=== PATIENT | female | born 1995 | race Caucasian/White ===

== ENCOUNTER 2019-08-19 11:02 | Outpatient (CLI) | payer BC, SELFPAY ==
--- NOTE | ~2019-08-19 | US_ITS ---
EXAMINATION: US renal BI EXAM DATE: 08/19/2019 11:50 INDICATION: Abdominal pain when using bathroom. TECHNIQUE: Multiple grayscale and Doppler images of the kidneys were obtained (by a technologist who performed the scan) and subsequently reviewed. There is no prior study for comparison. FINDINGS: Right kidney: There is normal contour and echogenicity. It measures 10.5 x 4.6 x 4.3 centimeters. T here are no focal renal lesions identified. There is no hydronephrosis. Left kidney: There is normal contour and echogenicity. It measures 11.2 x 4.8 x 4.9 centimeters. Th ere are no focal renal lesions identified. There is no hydronephrosis. Bladder unremarkable. IMPRESSION: 1. Sonographically unremarkable kidneys. Reviewed, dictated and finalized at location A.
== END 2019-08-19 11:03 | disposition home or self-care (01) ==
LOC: ANHIMG 11:06
PROVIDERS: Visit Provider Obstetrics & Gynecology
DX: R10.9 Unspecified abdominal pain (principal)
CPT/HCPCS: 76775

== ENCOUNTER 2020-05-23 11:51 | Outpatient (CLI) | payer BC, SELFPAY ==
[2020-05-23 12:33] LABS: Basophils Absolute Auto 0.1 K/mm3 (0.0-0.1); Basophils Percent Auto 0.5 % (0.2-1.2); Eosinophils Absolute Auto 0.1 K/mm3 (0-0.3); Hemoglobin 13.4 g/dL (12.0-15.0); Immature Granulocyte Absolute 0.02 K/mm3 (0.00-0.031); Immature Granulocyte Percent A 0.2 % (0-0.5); Lymphocytes Absolute Auto 2.37 K/mm3 (0.9-3.2); Mean Corpuscular HGB Conc 33.5 g/dl (32-36); Mean Corpuscular Hemoglobin 31.3 pg (26-34); Mean Corpuscular Volume 93.5 fl (80-100); Mean Platelet Volume 9.4 fl (7.4-10.4); Monocytes Absolute Auto 0.7 K/mm3 (0.1-0.6); Monocytes Percent Auto 7.9 % (2.6-8.5); Neutrophils Absolute Auto 5.9 K/mm3 (1.3-6.7); Neutrophils Percent Auto 64.4 % (45.5-73.1); Platelet Count Result 283 k/mm3 (150-375); Red Blood Count 4.28 M/mm3 (4.2-5.4); Red Cell Distribution Width 12.5 % (11.5-14.5); White Blood Count 9.1 K/mm3 (4.5-10.0)
[2020-05-23 12:38] LABS: Add Urine Microscopic? YES; Amorphous Sediment Urine Moderate; Appearance Urine Turbid (Clear); Bacteria Urine Trace /hpf; Bilirubin Urine Negative (Negative); Blood Urine Negative (Negative); Color Urine Yellow (Yellow); Glucose Urine UA Negative (Negative); Ketones Urine Trace mg/dL (Negative); Leukocyte Esterase Ur 1+ LEU/UL (NEGATIVE); Mucus Urine Moderate /lpf; Nitrate Urine Negative (Negative); Protein Urine 2+ mg/dL (Negative); Specific Grav Ur 1.018 (1.001-1.035); Squamous Epithelial Cell Urine Moderate /hpf (Few); Urobilinogen Urine Negative mg/dL (<2.0); WBC Urine 0-3 /hpf (0-3)
[2020-05-23 13:14] LABS: Thyroid Stimulating Hormone 0.032 uIU/mL (0.465-4.680); Vitamin D 25 Hydroxy 67.8 ng/mL
[2020-05-23 13:23] LABS: HIV 1/2 Ab P24 Ag Result Negative (Negative)
[2020-05-23 13:32] LABS: Hepatitis B Surface Antigen Negative (Negative); Rubella IgG Antibody 12.3 IU/ML
[2020-05-23 13:46] LABS: Hepatitis C Virus Antibody Negative (Negative)
[2020-05-24 10:19] LABS: Rapid Plasma Reagin Non-Reactive (NonReactive)
[2020-05-25 13:56] LABS: Varicella IgG Antibody <135.00 Index (>=165.00)
[2020-05-27 00:52] LABS: Hemoglobin 12.9 g/dL (11.7-15.5); MCH 31.4 pg (27.0-33.0); MCV 94.7 FL (80.0-100.0); RDW 13.8 % (11.0-15.0); Red Blood Cell Count 4.12 Mill/uL (3.80-5.10)
== END 2020-05-23 11:52 | disposition home or self-care (01) ==
LOC: ANHLAB 11:52
PROVIDERS: Visit Provider Obstetrics & Gynecology
DX: Z34.91 Encounter for supervision of normal pregnancy, unspecified, first trimester (principal); Z3A.10 10 weeks gestation of pregnancy
CPT/HCPCS: 36415; 81001; 82306; 83021; 84443; 85025; 86592; 86703; 86762; 86787; 86803; 86850; 86900; 86901; 87086; 87088; 87340; G0432

== ENCOUNTER 2020-09-22 11:55 | Outpatient (CLI) | payer BC, MEDICAID, SELFPAY ==
[2020-09-22 13:42] LABS: Basophils Absolute Auto 0.1 K/mm3 (0.0-0.1); Basophils Percent Auto 0.4 % (0.2-1.2); Eosinophils Absolute Auto 0.1 K/mm3 (0-0.3); Eosinophils Percent Auto 0.5 % (0-4.4); Hematocrit 35.6 % (37.0-47.0); Hemoglobin 11.8 g/dL (12.0-15.0); Immature Granulocyte Absolute 0.12 K/mm3 (0.00-0.031); Immature Granulocyte Percent A 1.1 % (0-0.5); Lymphocytes Absolute Auto 2.13 K/mm3 (0.9-3.2); Lymphocytes Percent Auto 19.1 % (18.3-44.2); Mean Corpuscular HGB Conc 33.1 g/dl (32-36); Mean Corpuscular Hemoglobin 32.1 pg (26-34); Mean Corpuscular Volume 96.7 fl (80-100); Mean Platelet Volume 9.6 fl (7.4-10.4); Monocytes Percent Auto 8.5 % (2.6-8.5); Neutrophils Absolute Auto 7.8 K/mm3 (1.3-6.7); Neutrophils Percent Auto 70.4 % (45.5-73.1); Platelet Count Result 262 k/mm3 (150-375); Red Blood Count 3.68 M/mm3 (4.2-5.4); Red Cell Distribution Width 13.2 % (11.5-14.5); White Blood Count 11.1 K/mm3 (4.5-10.0)
[2020-09-22 13:43] LABS: Glucose 1 Hour PP 50gm Dose 119 mg/dL
== END 2020-09-22 11:56 | disposition home or self-care (01) ==
LOC: ANHLAB 11:57
PROVIDERS: PCP Student in an Organized Health Care Education/Training Program; Visit Provider Student in an Organized Health Care Education/Training Program
DX: Z34.90 Encounter for supervision of normal pregnancy, unspecified, unspecified trimester (principal); Z3A.00 Weeks of gestation of pregnancy not specified
CPT/HCPCS: 36415; 82947; 85025

== ENCOUNTER 2020-11-02 11:12 | Outpatient (RCR) | payer BC, MEDICAID, SELFPAY ==
--- NOTE | ~2020-11-02 | US_ITS ---
EXAMINATION: US OB BPP wo non-stress DATE: 11/02/2020 12:35 CDT INDICATION: Decreased movements TECHNIQUE: Real-time transabdominal obstetric ultrasound. FINDINGS: No prior studies for comparison. There is a single living fetus in vertex presentation. The placenta is anterior without placenta pre via. cardiac activity and movement is noted with a heart rate of 119 beats per minute. Biophysical profile: breathin of 2 movement: 2 of 2 tone: 2 of 2 Amniotic flud pocket: 2 of 2 Total score: 8 of 8 IMPRESSION: 1. Single living intrauterine in vertex presentation. 2: Total biophysical profile score of 8/8. Reviewed, dictated and finalized at location A.
[2020-11-02 12:03] VITALS: BP 98/61; PULSE 100
--- NOTE | 2020-11-02 12:40 | PC.NURSE ---
BPP 10/23
== END 2020-12-19 07:35 | disposition home or self-care (01) ==
LOC: ANHOBOP 11:12
PROVIDERS: PCP Student in an Organized Health Care Education/Training Program; Visit Provider Student in an Organized Health Care Education/Training Program
DX: O36.8130 Decreased fetal movements, third trimester, not applicable or unspecified (principal); Z3A.33 33 weeks gestation of pregnancy
CPT/HCPCS: 59025; 76819

== ENCOUNTER 2020-11-14 08:33 | Outpatient (CLI) | payer BC, MEDICAID, SELFPAY ==
[2020-11-14 19:54] LABS: Basophils Absolute Auto 0.1 K/mm3 (0.0-0.1); Basophils Percent Auto 0.6 % (0.2-1.2); Eosinophils Absolute Auto 0.1 K/mm3 (0-0.3); Eosinophils Percent Auto 0.8 % (0-4.4); Hematocrit 34.1 % (37.0-47.0); Hemoglobin 10.5 g/dL (12.0-15.0); Immature Granulocyte Absolute 0.15 K/mm3 (0.00-0.031); Immature Granulocyte Percent A 1.4 % (0-0.5); Lymphocytes Absolute Auto 2.39 K/mm3 (0.9-3.2); Lymphocytes Percent Auto 22.8 % (18.3-44.2); Mean Corpuscular HGB Conc 30.8 g/dl (32-36); Mean Corpuscular Hemoglobin 30.3 pg (26-34); Mean Corpuscular Volume 98.3 fl (80-100); Mean Platelet Volume 9.7 fl (7.4-10.4); Monocytes Absolute Auto 1.2 K/mm3 (0.1-0.6); Monocytes Percent Auto 11.1 % (2.6-8.5); Neutrophils Absolute Auto 6.6 K/mm3 (1.3-6.7); Neutrophils Percent Auto 63.3 % (45.5-73.1); Platelet Count Result 260 k/mm3 (150-375); Red Blood Count 3.47 M/mm3 (4.2-5.4); Red Cell Distribution Width 13.9 % (11.5-14.5); White Blood Count 10.5 K/mm3 (4.5-10.0)
[2020-11-14 21:42] LABS: HIV 1/2 Ab P24 Ag Result Negative (Negative)
[2020-11-16 10:01] LABS: Rapid Plasma Reagin Non-Reactive (NonReactive)
== END 2020-11-14 08:34 | disposition home or self-care (01) ==
PROVIDERS: PCP Student in an Organized Health Care Education/Training Program; Visit Provider Student in an Organized Health Care Education/Training Program
DX: Z34.93 Encounter for supervision of normal pregnancy, unspecified, third trimester (principal); Z3A.31 31 weeks gestation of pregnancy
CPT/HCPCS: 36415; 85025; 86592; 86703; G0432

== ENCOUNTER 2020-12-08 13:56 | Inpatient (IN) | payer BC, MEDICAID, SELFPAY ==
[2020-12-08] VITALS (13 sets, daily range): BP systolic 99–114; BP diastolic 56–64; PULSE 66–90; RESP 18; TEMP 36.6–36.9; O2SAT 99–100; BMI 33.5
--- NOTE | 2020-12-08 13:56 | LDADM ---
This patient, Kae Mart, was admitted to Labor/Delivery/Recovery 107 on 12/08/20 at 13:56. Plans for labor, pain management and were discussed with patient. Patient/family oriented to hospital policies and general routines including ID bracelet, bed and alarms, visiting hours, pain management, procedures, bathroom and other care routines, personal items, smoking policy, room service/diet and guest tray routines, security routines, and visiting hours. Patient/Family are encouraged to report perceived risks to care and to ask questions if they do not understand what they are told or what they should do. See OBIX for further documentation.
[2020-12-08 14:24] LABS: Basophils Absolute Auto 0.1 K/mm3 (0.0-0.1); Basophils Percent Auto 0.4 % (0.2-1.2); Eosinophils Percent Auto 0.3 % (0-4.4); Hematocrit 35.9 % (37.0-47.0); Hemoglobin 12.1 g/dL (12.0-15.0); Immature Granulocyte Absolute 0.13 K/mm3 (0.00-0.031); Immature Granulocyte Percent A 0.9 % (0-0.5); Lymphocytes Absolute Auto 3.18 K/mm3 (0.9-3.2); Lymphocytes Percent Auto 22.8 % (18.3-44.2); Mean Corpuscular HGB Conc 33.7 g/dl (32-36); Mean Corpuscular Volume 92.1 fl (80-100); Mean Platelet Volume 9.7 fl (7.4-10.4); Monocytes Absolute Auto 1.4 K/mm3 (0.1-0.6); Neutrophils Absolute Auto 9.2 K/mm3 (1.3-6.7); Neutrophils Percent Auto 65.6 % (45.5-73.1); Platelet Count Result 289 k/mm3 (150-375); Red Cell Distribution Width 13.4 % (11.5-14.5)
[2020-12-08] MEDS: OXYTOCIN 30 UNITS/NS 500 ML 30 UNITS/500 ML BAG 125 UNITS IV CONT (15:11)
[2020-12-08] MEDS: BENZOCAINE 20% AER SPR (*SP) 56 GM CAN 1 SPRAY TOPICAL (15:15)
[2020-12-08] MEDS: WITCH HAZEL 40 PADS 1 PAD TOPICAL (15:15)
--- NOTE | 2020-12-08 16:43 | PC.NURSE ---
Patient transferred to post room #286 per wheelchair from labor and delivery. Support person present. Oriented to unit, room, information board, rooming in, admission packet and security measures. Patient verbalizes understanding.
[2020-12-09 04:10] VITALS: BP 96/62; PULSE 85; RESP 18; TEMP 36.6; O2SAT 96
[2020-12-09 04:59] LABS: Hematocrit 32.6 % (37.0-47.0); Hemoglobin 10.7 g/dL (12.0-15.0)
--- NOTE | 2020-12-09 06:51 | PM.IMHP ---
H&P: HPI History of Present Illness Date/Time: 12/08/20 1400 LMP 03/12 with an EDC 12/17/20 consistent with a 6 week ultrasound. Patient at 38 weeks presented in active labor after having SROM clear at 1330, she then started having regular contractions soon afterwards. When she presented to L and D she was 7 cm and progressing rapidly. PNC uncomplicated. Labs reviewed. GBS neg. Chief Complaint: Labor. Review of Systems Review of Systems: All systems reviewed & are unremarkable except as noted in HPI and below Constitutional: Constitutional: Reports no additional constitutional complaints and Denies headache(s) Eyes: Eyes: Denies spots in vision ENT: Reports system reviewed and no additional complaints, except as documented and Denies headache(s) Cardiovascular: Cardiovascular: Denies chest pain and Denies dyspnea Respiratory: Respiratory: Denies dyspnea Gastrointestinal: Gastrointestinal: Reports no additional gastrointestinal complaints Genitourinary: Genitourinary: Reports amenorrhea Musculoskeletal: Musculoskeletal: Reports no additional musculoskeletal complaints Integumentary/Breasts: Skin/Breast: Denies breast mass and Denies rash Neurologic: Denies headache(s) Psychiatric: Psychiatric: Reports no additional psychiatric complaints [facility] Past Medical History Medical History Vaginal delivery x1 Surgical History Surgical History History of tonsillectomy Family History Family History Mother Hypertension Social History Social History Smoking status: Never smoker Alcohol intake: never Substance use: unknown Spiritual care concerns: No Meds Home Medications and Allergies Home Medications Medication Instructions Recorded Confirmed Type vit 123-iron 28 mg-folic 1 cap PO DAILY 12/29/19 12/08/20 History acid 800 [id number] 235 mg capsule Allergies Allergy/AdvReac Type Severity Reaction Status Date / Time EPIDURAL AdvReac TACHYCARDIA Uncoded 12/08/20 14:53 Vital Signs Vital Signs - 24 hr 12/08/20 14:16 12/08/20 14:28 12/08/20 14:31 Temperature 98.4 F Pulse Rate 84 85 Respiratory Rate Blood Pressure 108/62 105/57 L Pulse Oximetry 12/08/20 14:35 12/08/20 14:46 12/08/20 15:01 Temperature 98.3 F Pulse Rate 80 87 Respiratory Rate Blood Pressure 113/61 114/56 L Pulse Oximetry 12/08/20 15:16 12/08/20 15:31 12/08/20 15:46 Temperature Pulse Rate 83 90 85 Respiratory Rate Blood Pressure 103/57 L 106/57 L 99/57 L Pulse Oximetry 12/08/20 16:01 12/08/20 16:45 12/08/20 19:30 Temperature 97.9 F 98.4 F Pulse Rate 69 76 77 Respiratory Rate 18 18 Blood Pressure 102/62 108/62 100/64 Pulse Oximetry 99 12/08/20 23:10 12/09/20 04:10 Temperature 98.0 F 97.8 F Pulse Rate 66 85 Respiratory Rate 18 18 Blood Pressure 101/60 96/62 L Pulse Oximetry 100 96 Exam Const: General: no acute distress Eyes: General: appearance normal, both eyes and all related structures Resp: Effort & Inspection: normal respiratory effort Cardio: Rate: regular rate GI: Other: Gravid no fundal tenderness no right upper quadrant pain : External Female Exam: normal external appearance Speculum Exam - Vagina: normal appearance of the vagina Manual OB Exam: dilated 7 cm, effaced (90) and station -1 Skin: General skin exam: no rashes or lesions noted Neuro: Cognition (Neuro): normal cognition Extrem: General: normal to inspection Psych: Mental Status: mental status grossly normal H&P: Results Labs Labs: Short CBC 12/08/20 12/09/20 Range/Units 14:16 03:58 WBC 14.0 H (4.5-10.0) K/mm3 Hgb 12.1 10.7 L (12.0-15.0) g/dL Hct 35.9 L 32.6 L (37.0-47.0) % Plt Count 289 (150-375)
--- NOTE | 2020-12-09 07:01 | P.PCNOB_ITS ---
OB - Delivery Note Procedure Delivery date: 12/08/20 Procedure: Spontaneous vaginal delivery Intrapartal events: Precipitous Labor < 3 hours Delivery monitor: external FHT Route of delivery: Episiotomy description: None Laceration Description: None Quantitative Blood Loss (ml): 200 Anesthesia type: None Disposition: floor Complications: None Narrative: Patient was admitted on 12/08 20 after having spontaneous rupture of membranes clear at 1:30 p.m.. She arrived at Labor and delivery and confirmed ruptured membranes. Her cervix was 7 cm. She was rapidly progressing and had the urge to push. She was completely dilated at approximately 14 20. She delivered spontaneously a female infant. There was a loose nuchal cord which was manually reduced. The rest the infant was then delivered and placed on maternal abdomen. Baby was vigorously crying upon being placed on the abdomen. Delayed cord clamping for approximately 30 seconds when the cord was a pulsatile. The cord was clamped and cut the cord blood was obtained and prior to that cord gases were obtained from the cord. The placenta delivered spontaneously and intact. There were no lacerations. EBL was 200 cc. The patient tolerated procedure well. [place] Baby Date of : 12/08/20 Time of : 14:29 Weeks of gestation at delivery: 38 gender: Female Weight (pounds): 7 Weight (ounces): 12 presentation: vertex position: Right Occiput Anterior Placenta delivery description: Spontaneous cord vessel description: 3 Vessels score one minute: 8 score five minutes: 9
--- NOTE | 2020-12-09 07:41 | PM.OBDSVD ---
DS: Admitting Diagnosis Discharge Date 12/09/2020 Admitting Diagnosis active labor DS: Discharge Diagnosis Discharge Diagnosis (1) Vaginal delivery: Code(s): O80 - Encounter for full-term uncomplicated delivery Status: Acute OB - DS: Summary OB Procedures : None OB Procedures Intrapartum: Spontaneous Vag Delivery OB Procedures: : None Time Spent with Patient Time attestation: Total time spent providing and/or coordinating discharge services: DS: Data Data Completed and Pending Labs on day of discharge: Labs from last 24 hours 12/09/20 12/08/20 12/08/20 03:58 14:16 14:16 WBC RBC Hgb 10.7 L Hct 32.6 L MCV MCH MCHC RDW Plt Count MPV Immature Gran % (Auto) Neut % (Auto) Lymph % (Auto) [place] % (Auto) Eos % (Auto) Baso % (Auto) Lymph # (Auto) [place] # (Auto) Eos # (Auto) Baso # (Auto) Abs Immat Gran (auto) Absolute Neuts (auto) Absolute Nucleated RBC Nucleated RBC % RPR Pending Blood Type O Positive Antibody Screen Negative 12/08/20 14:16 WBC 14.0 H RBC 3.90 L Hgb 12.1 Hct 35.9 L MCV 92.1 MCH 31.0 MCHC 33.7 RDW 13.4 Plt Count 289 MPV 9.7 Immature Gran % (Auto) 0.9 H Neut % (Auto) 65.6 Lymph % (Auto) 22.8 [place] % (Auto) 10.0 H Eos % (Auto) 0.3 Baso % (Auto) 0.4 Lymph # (Auto) 3.18 [place] # (Auto) 1.4 H Eos # (Auto) 0.0 Baso # (Auto) 0.1 Abs Immat Gran (auto) 0.13 H Absolute Neuts (auto) 9.2 H Absolute Nucleated RBC 0.0 Nucleated RBC % 0.0 RPR Blood Type Antibody Screen Discharge Plan Discharge Attending physician on discharge: Oleksandr Cameron Discharging Clinician: Elaine Maddox Patient Disposition: Home, Self-Care Activity: may shower and pelvic rest Diet: as tolerated Patient Instructions: Antibiotic Form Stand Alone Forms: General Discharge Information Follow-up/Referrals: Oleksandr Cameron MD [Physician] - 6 Weeks Discharge Medications: New ibuprofen 600 mg Tablet 600 mg PO Q6H PRN (Reason: Cramping) Qty: 60 RF: 0 Continued One-A-Day Women's 1 28 mg iron- 800 mcg-235 mg capsule 1 cap PO DAILY RF: 0 Date of admission: 12/08/20 13:56 Primary Care Provider: Katie Brooke Admitting Provider: Oleksandr Cameron Attending physician on admission: Oleksandr Cameron Condition: Stable
--- NOTE | 2020-12-09 07:43 | P.PNOB_ITS ---
OB - PN: Subj Subjective Date/time seen: 12/09/20 07:43 Patient comments: no complaints, pain well controlled and other (Lochia similar to menses) [place] baby status: doing well OB - PN: Obj Data Labs CBC & Chem 7: 12/09/20 03:58 Labs: Laboratory Results - last 24 hr 12/08/20 12/08/20 12/09/20 14:16 14:16 03:58 WBC 14.0 H RBC 3.90 L Hgb 12.1 10.7 L Hct 35.9 L 32.6 L MCV 92.1 MCH 31.0 MCHC 33.7 RDW 13.4 Plt Count 289 MPV 9.7 Immature Gran % (Auto) 0.9 H Neut % (Auto) 65.6 Lymph % (Auto) 22.8 [place] % (Auto) 10.0 H Eos % (Auto) 0.3 Baso % (Auto) 0.4 Lymph # (Auto) 3.18 [place] # (Auto) 1.4 H Eos # (Auto) 0.0 Baso # (Auto) 0.1 Abs Immat Gran (auto) 0.13 H Absolute Neuts (auto) 9.2 H Absolute Nucleated RBC 0.0 Nucleated RBC % 0.0 Blood Type O Positive Antibody Screen Negative OB - PN A/P Plan day: 1 (s/p vaginal delivery, doing well) Plan: routine care, discharge home and follow up 6 weeks Time Spent With Patient Time: Total time spent is greater than 50% in coordination of care (as documented) at patient's floor/unit and/or counseling patient: Time with patient: less than 15 minutes Exam Const: General: no acute distress GI: Inspection: other (Fundus firm and nontender at umbilicus) GI Palp: Yes Soft to palpation and No Tenderness to palpation present (GI) Extrem: General: no edema
[2020-12-09 08:30] VITALS: BP 108/64; PULSE 72; RESP 16; TEMP 36.6; O2SAT 98
[2020-12-09] MEDS: MULTIVIT/MIN/PREN/FOL AC/IRON TABLET 1 TAB PO (09:06)
--- NOTE | 2020-12-09 12:00 | PC.NURSE ---
Patient instructed to view the discharge video Mother & Baby Care, The First Two Weeks . Patient was given the opportunity and encouraged to ask questions. Patient verbalized understanding of information shared and has been given the mother/baby guide for home reference.
[2020-12-09 12:13] VITALS: BP 116/73; PULSE 84; RESP 18; TEMP 37.2; O2SAT 99
[2020-12-09 13:52] LABS: Rapid Plasma Reagin Non-Reactive (NonReactive)
[2020-12-10 13:21] VITALS: BP 109/74; PULSE 81; RESP 16; TEMP 37.4; O2SAT 99
== END 2020-12-09 17:12 | disposition home or self-care (01) | DRG 807 ==
LOC: ANHOB2 12-09 16:41 → ANHLDR 12-12 09:12 → ANHOB2 12-12 09:12
PROVIDERS: Admitting Provider Obstetrics & Gynecology; PCP Student in an Organized Health Care Education/Training Program; Visit Provider Obstetrics & Gynecology
DX: O62.3 Precipitate labor (principal); Z37.0 Single live birth; O69.81X0 Labor and delivery complicated by cord around neck, without compression, not applicable or unspecified; Z3A.38 38 weeks gestation of pregnancy
CPT/HCPCS: 36415; 85014; 85018; 85025; 86592; 86850; 86900; 86901; A9270; J2590

== ENCOUNTER 2021-02-13 08:58 | Outpatient (CLI) | payer MEDICAID, SELFPAY ==
[2021-02-13 19:07] LABS: T4 Thyroxine 9.38 ug/dL (5.53-11.0); Vitamin D 25 Hydroxy 54.2 ng/mL
[2021-02-13 19:20] LABS: Thyroid Stimulating Hormone 0.727 uIU/mL (0.465-4.680)
== END 2021-02-13 08:59 | disposition home or self-care (01) ==
PROVIDERS: PCP Obstetrics & Gynecology; Visit Provider Obstetrics & Gynecology
DX: O99.345 Other mental disorders complicating the puerperium (principal); F53.0 Postpartum depression; Z51.81 Encounter for therapeutic drug level monitoring; Z79.899 Other long term (current) drug therapy
CPT/HCPCS: 36415; 82306; 84436; 84443

== ENCOUNTER → 2021-12-08 08:08 | Outpatient (CLI) | payer OTHER, SELFPAY ==
--- NOTE | ~2021-12-08 | US_ITS ---
EXAMINATION: US OB <= 14 weeks fetus DATE: 12/08/2021 08:37 INDICATION: First trimester dating and viability assessment. TECHNIQUE: Real-time pelvic transabdominal and transvaginal ultrasound was performed. COMPARISON: None. FINDINGS: The uterus measures 10.1 x 6.4 x 8.9 cm. There is an intrauterine gestational sac. A yolk sac is identified. heart motion is identified measuring 176 beats per minute (bpm) by M-mode Do ppler. The crown rump length measures 2.2 cm, which correlates with an estimated gestational ag e of 8 weeks and 6 day(s) (+/-) 6 day(s). The ovaries are not visualized however no adnexal abnormality is seen. There is no free fluid in the pelvis. IMPRESSION: 1. Live intrauterine with an estimated gestational age of 8 weeks and 6 day(s) (+/-) 6 day( s) and an estimated delivery date of 07/14/2022. Reviewed, dictated and finalized at location A. IMPRESSION: 1. Live intrauterine with an estimated gestational age of 8 weeks and 6 day(s) (+/-) 6 day(s) and an estimated delivery date of 07/14/2022.
== END ==
PROVIDERS: PCP Obstetrics & Gynecology; Visit Provider Obstetrics & Gynecology
DX: O36.80X0 Pregnancy with inconclusive fetal viability, not applicable or unspecified (principal); Z3A.08 8 weeks gestation of pregnancy
CPT/HCPCS: 76801

== ENCOUNTER 2022-01-31 15:06 | Outpatient (CLI) | payer OTHER, SELFPAY ==
[2022-01-31 20:15] LABS: Free T4 Free Thyroxine 0.82 ng/mL (0.78-2.19)
[2022-02-01 04:22] LABS: Appearance Urine Cloudy (Clear); Bilirubin Urine 1+ (Negative); Blood Urine Trace-intact (Negative); Color Urine Yellow (Yellow); Glucose Urine UA Negative (Negative); Ketones Urine 3+ mg/dL (Negative); Leukocyte Esterase Ur 1+ LEU/UL (NEGATIVE); Nitrate Urine Negative (Negative); Protein Urine Trace mg/dL (Negative); Specific Grav Ur 1.025 (1.001-1.035); Urobilinogen Urine 0.2 mg/dL (<2.0); pH Urine 5.5 (5.0-9.0)
[2022-02-01 04:29] LABS: Bacteria Urine Trace /hpf; Mucus Urine Few /lpf; Squamous Epithelial Cell Urine Many /hpf (Few); WBC Urine 31-50 /hpf (0-3)
[2022-02-01 04:39] LABS: Add Urine Microscopic? YES
== END 2022-01-31 15:07 | disposition home or self-care (01) ==
LOC: ANHBWCLAB 15:08
PROVIDERS: PCP Obstetrics & Gynecology; Visit Provider Obstetrics & Gynecology
DX: Z34.90 Encounter for supervision of normal pregnancy, unspecified, unspecified trimester (principal); R82.90 Unspecified abnormal findings in urine; R79.89 Other specified abnormal findings of blood chemistry; Z3A.00 Weeks of gestation of pregnancy not specified
CPT/HCPCS: 36415; 81001; 84439; 86900; 86901; 87086; 87088

== ENCOUNTER 2022-04-21 09:54 | Outpatient (CLI) | payer OTHER, SELFPAY ==
[2022-04-21 11:38] LABS: Basophils Percent Auto 0.3 % (0.2-1.2); Eosinophils Absolute Auto 0.1 K/mm3 (0-0.3); Eosinophils Percent Auto 0.9 % (0-4.4); Hematocrit 34.9 % (37.0-47.0); Hemoglobin 11.4 g/dL (12.0-15.0); Immature Granulocyte Absolute 0.08 K/mm3 (0.00-0.031); Immature Granulocyte Percent A 0.8 % (0-0.5); Lymphocytes Absolute Auto 2.12 K/mm3 (0.9-3.2); Lymphocytes Percent Auto 21.9 % (18.3-44.2); Mean Corpuscular HGB Conc 32.7 g/dl (32-36); Mean Corpuscular Hemoglobin 30.3 pg (26-34); Mean Corpuscular Volume 92.8 fl (80-100); Mean Platelet Volume 8.8 fl (7.4-10.4); Monocytes Absolute Auto 1.1 K/mm3 (0.1-0.6); Monocytes Percent Auto 11.4 % (2.6-8.5); Neutrophils Absolute Auto 6.3 K/mm3 (1.3-6.7); Neutrophils Percent Auto 64.7 % (45.5-73.1); Platelet Count Result 293 k/mm3 (150-375); Red Blood Count 3.76 M/mm3 (4.2-5.4); Red Cell Distribution Width 14.4 % (11.5-14.5); White Blood Count 9.7 K/mm3 (4.5-10.0)
[2022-04-21 11:47] LABS: Glucose 1 Hour PP 50gm Dose 92 mg/dL
== END 2022-04-21 09:55 | disposition home or self-care (01) ==
LOC: ANHLAB 09:55
PROVIDERS: PCP Obstetrics & Gynecology; Visit Provider Obstetrics & Gynecology
DX: Z34.90 Encounter for supervision of normal pregnancy, unspecified, unspecified trimester (principal); Z3A.00 Weeks of gestation of pregnancy not specified
CPT/HCPCS: 36415; 82947; 85025

== ENCOUNTER 2022-06-04 08:37 | Outpatient (CLI) | payer OTHER, SELFPAY ==
[2022-06-04 19:59] LABS: Basophils Absolute Auto 0.1 K/mm3 (0.0-0.1); Basophils Percent Auto 0.6 % (0.2-1.2); Eosinophils Absolute Auto 0.1 K/mm3 (0-0.3); Eosinophils Percent Auto 0.9 % (0-4.4); Hematocrit 33.4 % (37.0-47.0); Immature Granulocyte Absolute 0.09 K/mm3 (0.00-0.031); Lymphocytes Absolute Auto 2.01 K/mm3 (0.9-3.2); Lymphocytes Percent Auto 22.9 % (18.3-44.2); Mean Corpuscular HGB Conc 29.9 g/dl (32-36); Mean Corpuscular Hemoglobin 28.7 pg (26-34); Mean Platelet Volume 9.3 fl (7.4-10.4); Monocytes Percent Auto 11.6 % (2.6-8.5); Neutrophils Absolute Auto 5.5 K/mm3 (1.3-6.7); Platelet Count Result 264 k/mm3 (150-375); Red Blood Count 3.48 M/mm3 (4.2-5.4); Red Cell Distribution Width 14.7 % (11.5-14.5); White Blood Count 8.8 K/mm3 (4.5-10.0)
[2022-06-04 20:33] LABS: HIV 1/2 Ab P24 Ag Result Negative (Negative)
[2022-06-04 21:11] LABS: Platelet Estimate Adequate (Adequate); Schistocytes None Seen (NORMAL)
[2022-06-04 21:12] LABS: Anisocytosis 1+ (NORMAL); Hypochromasia 1+ (NORMAL)
[2022-06-05 10:53] LABS: Rapid Plasma Reagin Non-Reactive (NonReactive)
== END 2022-06-04 08:38 | disposition home or self-care (01) ==
LOC: ANHBWCLAB 08:39
PROVIDERS: PCP Obstetrics & Gynecology; Visit Provider Obstetrics & Gynecology
DX: Z34.90 Encounter for supervision of normal pregnancy, unspecified, unspecified trimester (principal); Z3A.00 Weeks of gestation of pregnancy not specified
CPT/HCPCS: 36415; 85025; 86592; 86703; G0432

== ENCOUNTER 2022-06-20 10:28 | Outpatient (CLI) | payer OTHER, SELFPAY | END 2022-06-20 13:00 | disposition home or self-care (01) | LOC: ANHOBOP 11:41 → ANHLDR 11:41 → ANHOBPP 06-25 06:32 | PROVIDERS: Visit Provider Obstetrics & Gynecology | DX: O42.90 Premature rupture of membranes, unspecified as to length of time between rupture and onset of labor, unspecified weeks of gestation (principal); Z3A.00 Weeks of gestation of pregnancy not specified | CPT/HCPCS: 59025; 84112; 99199 ==

== ENCOUNTER 2022-07-06 08:02 | Inpatient (IN) | payer OTHER, SELFPAY ==
[2022-07-06] VITALS (30 sets, daily range): BP systolic 92–125; BP diastolic 56–75; PULSE 76–122; RESP 16–18; TEMP 36.6–37.2; O2SAT 97–99; BMI 35.4
--- NOTE | 2022-07-06 09:36 | LDADM ---
This patient, Kae Mart, was admitted to Labor/Delivery/Recovery 106 on 07/06/22 at 08:02. Plans for labor, pain management and were discussed with patient. Patient/family oriented to hospital policies and general routines including ID bracelet, bed and alarms, visiting hours, pain management, procedures, bathroom and other care routines, personal items, smoking policy, room service/diet and guest tray routines, security routines, and visiting hours. Patient/Family are encouraged to report perceived risks to care and to ask questions if they do not understand what they are told or what they should do. See OBIX for further documentation.
[2022-07-06 09:39] LABS: Basophils Absolute Auto 0.1 K/mm3 (0.0-0.1); Basophils Percent Auto 0.4 % (0.2-1.2); Eosinophils Absolute Auto 0.1 K/mm3 (0-0.3); Eosinophils Percent Auto 0.5 % (0-4.4); Hematocrit 32.4 % (37.0-47.0); Immature Granulocyte Absolute 0.14 K/mm3 (0.00-0.031); Immature Granulocyte Percent A 1.1 % (0-0.5); Lymphocytes Absolute Auto 1.96 K/mm3 (0.9-3.2); Lymphocytes Percent Auto 15.7 % (18.3-44.2); Mean Corpuscular HGB Conc 30.9 g/dl (32-36); Mean Corpuscular Hemoglobin 27.7 pg (26-34); Mean Corpuscular Volume 89.8 fl (80-100); Mean Platelet Volume 9.8 fl (7.4-10.4); Monocytes Absolute Auto 1.3 K/mm3 (0.1-0.6); Monocytes Percent Auto 10.2 % (2.6-8.5); Neutrophils Percent Auto 72.1 % (45.5-73.1); Platelet Count Result 209 k/mm3 (150-375); Red Blood Count 3.61 M/mm3 (4.2-5.4); Red Cell Distribution Width 15.5 % (11.5-14.5); White Blood Count 12.5 K/mm3 (4.5-10.0)
[2022-07-06] MEDS: fentaNYL CITRATE INJ (*CRX) 100 MCG/2 ML VIAL 50 MCG IV PUSH (12:40)
[2022-07-06] MEDS: OXYTOCIN 30 UNITS/NS 500 ML 30 UNITS/500 ML BAG 999 UNITS IV CONT (13:41)
--- NOTE | 2022-07-06 13:49 | PM.OBPRVD ---
OB - Delivery Note Procedure Delivery date: 07/06/22 Procedure: Spontaneous vaginal delivery Delivery monitor: External FHT Route of delivery: Episiotomy description: None Laceration Description: None Quantitative Blood Loss (ml): 150 Anesthesia type: None Disposition: Floor Complications: None Narrative: She had SROM clear at 0730 clear. She was dilated to 4cm. She continued to progress. There was a small forebag which was AROM. She was 8cm at that time and progressed to complete with strong urge to push. She delivered a male infant over intact perineum. Nose and mouth suctioned at perineum. Placenta delivered spontaneously and intact. No lacerations. [place] Baby Date of : 07/06/22 Time of : 13:37 Weeks of gestation at delivery: 38 Infant gender: Male presentation: vertex position: Right Occiput Anterior Placenta delivery description: Spontaneous Cord Vessel Description: Clamped/Cut and Delayed Cord Clamping score one minute: 8 score five minutes: 9 AMG Delivery Billing Delivery Delivery: Delivery Charge
--- NOTE | 2022-07-06 13:59 | PM.IMHP ---
H&P: HPI History of Present Illness Date/Time: 07/06/22 13:59 Chief Complaint: Leaking of fluid Narrative: She is a at 38 6/7 weeks by 8 week ultrasound which was not consistent with LMP. PNC significant for h/o depression. Plan is to start on SSRI after delivery. She presented with c/o clear LOF at 0730 and subsequent irregular contractions. On presentation to L and D she was 4cm, irregular ctx and confirmed ROM. Review of Systems Review of Systems: All systems reviewed & are unremarkable except as noted in HPI and below Constitutional: Constitutional: Reports no additional constitutional complaints and Denies headache(s) Eyes: Eyes: Denies spots in vision ENT: Reports system reviewed and no additional complaints, except as documented and Denies headache(s) Cardiovascular: Cardiovascular: Denies chest pain and Denies dyspnea Respiratory: Respiratory: Denies dyspnea Gastrointestinal: Gastrointestinal: Reports no additional gastrointestinal complaints Genitourinary: Genitourinary: Reports amenorrhea Musculoskeletal: Musculoskeletal: Reports no additional musculoskeletal complaints Integumentary/Breasts: Skin/Breast: Denies breast mass and Denies rash Neurologic: Denies headache(s) Psychiatric: Psychiatric: Reports no additional psychiatric complaints PMFSH Past Medical History Medical History Vaginal delivery x2 Surgical History Surgical History History of tonsillectomy Family History Family History Mother Hypertension Social History Social History Smoking status: Never smoker Alcohol intake: never Substance use: never Lack of Transportation: No Lack of Food: Never True Current Housing: I Have Housing Concerned About Future Housing: No Difficulty Paying Gas/Electric Bills: No Difficulty Paying for Meds: No Currently Unemployed: No Education: High School Diploma/GED Difficulty w/ Childcare or Family Care: No Spiritual care concerns: No Meds Home Medications and Allergies Home Medications Medication Instructions Recorded Confirmed Type vit 123-iron 28 mg-folic 1 cap PO DAILY 12/29/19 06/20/22 History acid 800 [id number] 235 mg capsule (One-A-Day Women's 1 DHA-FA) ferrous sulfate 325 mg (65 mg 325 mg PO DAILY 06/14/22 06/20/22 History iron) tablet Allergies Allergy/AdvReac Type Severity Reaction Status Date / Time EPIDURAL AdvReac TACHYCARDIA Uncoded 07/02/22 11:01 Vital Signs Vital Signs - 24 hr 07/06/22 09:00 07/06/22 09:15 07/06/22 09:45 Pulse Rate 110 H 114 H 118 H Blood Pressure 112/68 116/67 102/63 07/06/22 10:00 07/06/22 10:15 07/06/22 10:30 Pulse Rate 111 H 114 H 103 H Blood Pressure 101/66 112/73 117/61 07/06/22 10:45 07/06/22 11:00 07/06/22 11:15 Pulse Rate 114 H 119 H 112 H Blood Pressure 108/68 108/66 108/66 07/06/22 11:30 07/06/22 11:45 07/06/22 12:00 Pulse Rate 111 H 111 H 103 H Blood Pressure 111/67 118/62 121/56 L 07/06/22 12:15 07/06/22 12:30 07/06/22 12:45 Pulse Rate 101 H 100 122 H Blood Pressure 104/57 L 115/62 120/74 07/06/22 13:00 07/06/22 13:15 07/06/22 13:30 Pulse Rate 112 H 96 93 Blood Pressure 123/70 103/60 92/65 L 07/06/22 13:45 Pulse Rate 102 H Blood Pressure 111/59 L Exam Const: General: no acute distress Eyes: General: appearance normal, both eyes and all related structures Resp: Effort & Inspection: normal respiratory effort Cardio: Rate: regular rate GI: Other: Gravid no fundal tenderness no right upper quadrant pain : Other: 4/60/-2 Skin: General skin exam: no rashes or lesions noted Neuro: Cognition (Neuro): normal cognition Extrem: General: normal to inspection Psych:
--- NOTE | 2022-07-06 14:07 | P.PNOB_ITS ---
OB - PN: Subj Subjective Date/time seen: 07/06/22 14:07 Interval history: Cat 2, arom fore bag, cervix /0, FHT 130. OB - PN: Obj Data Labs 07/06/22 09:31 Labs: Laboratory Results - last 24 hr 07/06/22 07/06/22 09:31 09:31 WBC 12.5 H RBC 3.61 L Hgb 10.0 L Hct 32.4 L MCV 89.8 MCH 27.7 MCHC 30.9 L RDW 15.5 H Plt Count 209 MPV 9.8 Immature Gran % (Auto) 1.1 H Neut % (Auto) 72.1 Lymph % (Auto) 15.7 L [place] % (Auto) 10.2 H Eos % (Auto) 0.5 Baso % (Auto) 0.4 Lymph # (Auto) 1.96 [place] # (Auto) 1.3 H Eos # (Auto) 0.1 Baso # (Auto) 0.1 Abs Immat Gran (auto) 0.14 H Absolute Neuts (auto) 9.0 H Absolute Nucleated RBC 0.0 Nucleated RBC % 0.0 Blood Type O Positive Antibody Screen Negative OB - PN A/P Time Spent With Patient Time: Total time spent is greater than 50% in coordination of care (as documented) at patient's floor/unit and/or counseling patient:
[2022-07-06] MEDS: OXYTOCIN 30 UNITS/NS 500 ML 30 UNITS/500 ML BAG 125 UNITS IV CONT (14:20)
--- NOTE | 2022-07-06 17:39 | OBPPTRN ---
1605-Patient transferred to post room #290 via wheelchair. Support person present. Oriented to unit, room, information board, rooming in, admission packet and security measures. Patient verbalizes understanding.
[2022-07-06] MEDS: SERTRALINE HCL 50 MG TABLET PO (19:44)
[2022-07-07 03:44] VITALS: BP 108/65; PULSE 77; RESP 18; TEMP 36.6; O2SAT 97
[2022-07-07 03:46] LABS: Hematocrit 32.1 % (37.0-47.0); Hemoglobin 9.8 g/dL (12.0-15.0)
--- NOTE | 2022-07-07 08:33 | P.PNOB_ITS ---
OB - PN: Subj Subjective Date/time seen: 07/07/22 08:33 Interval history: Cat 2, arom fore bag, cervix 8/90/0, FHT 130. Patient comments: pain well controlled, tolerating diet and other (Decreasing lochia.) [place] baby status: doing well and nursing well Sentinel feeding status: exclusively breast feeding OB - PN: Obj Data Labs 07/07/22 03:13 Labs: Laboratory Results - last 24 hr 07/06/22 07/06/22 07/07/22 09:31 09:31 03:13 WBC 12.5 H RBC 3.61 L Hgb 10.0 L 9.8 L Hct 32.4 L 32.1 L MCV 89.8 MCH 27.7 MCHC 30.9 L RDW 15.5 H Plt Count 209 MPV 9.8 Immature Gran % (Auto) 1.1 H Neut % (Auto) 72.1 Lymph % (Auto) 15.7 L [place] % (Auto) 10.2 H Eos % (Auto) 0.5 Baso % (Auto) 0.4 Lymph # (Auto) 1.96 [place] # (Auto) 1.3 H Eos # (Auto) 0.1 Baso # (Auto) 0.1 Abs Immat Gran (auto) 0.14 H Absolute Neuts (auto) 9.0 H Absolute Nucleated RBC 0.0 Nucleated RBC % 0.0 Blood Type O Positive Antibody Screen Negative OB - PN A/P Assessment and Plan (1) Delivery normal: Code(s): O80 - Encounter for full-term uncomplicated delivery Status: Acute Assessment and Plan: PPD1 s/p - doing well. Request discharge today. Discharge precautions discussed. Plan day: 1 Plan: routine care Comments: Patient doing well. Time Spent With Patient Time: Total time spent is greater than 50% in coordination of care (as documented) at patient's floor/unit and/or counseling patient: Exam Psych: Affect: normal affect Other: Abd: fundus firm below umbilicus, nontender Ext: nontender
--- NOTE | 2022-07-07 08:35 | PM.OBDSVD ---
DS: Admitting Diagnosis Discharge Date 07/07/22 Admitting Diagnosis Active labor DS: Discharge Diagnosis Discharge Diagnosis (1) Delivery normal: Code(s): O80 - Encounter for full-term uncomplicated delivery Status: Acute OB - DS: Summary OB Procedures : Ultrasound OB Procedures Intrapartum: Spontaneous Vag Delivery OB Procedures: : None Peripartum Data Infant Delivery Method: Natural Vaginal complications: none Status at Discharge Functional status at discharge: independent ambulation Time Spent with Patient Time attestation: Total time spent providing and/or coordinating discharge services: Exam Const: General: cooperative Orientation/consciousness: oriented to person, oriented to place and oriented to time HENMT: Face/Nose/Sinus: Normal external nose present Eyes: General: appearance normal, both eyes and all related structures Resp: Effort & Inspection: normal respiratory effort GI: Inspection: normal to inspection Skin: General skin exam: normal color Neuro: General: oriented to person, oriented to place and oriented to time Extrem: General: normal to inspection and no calf tenderness Psych: Appearance: grossly normal Mental Status: mental status grossly normal DS: Data Data Completed and Pending Labs on day of discharge: Labs from last 24 hours 07/07/22 07/06/22 07/06/22 03:13 09:31 09:31 WBC RBC Hgb 9.8 L Hct 32.1 L MCV MCH MCHC RDW Plt Count MPV Immature Gran % (Auto) Neut % (Auto) Lymph % (Auto) [place] % (Auto) Eos % (Auto) Baso % (Auto) Lymph # (Auto) [place] # (Auto) Eos # (Auto) Baso # (Auto) Abs Immat Gran (auto) Absolute Neuts (auto) Absolute Nucleated RBC Nucleated RBC % RPR Pending Blood Type O Positive Antibody Screen Negative 07/06/22 09:31 WBC 12.5 H RBC 3.61 L Hgb 10.0 L Hct 32.4 L MCV 89.8 MCH 27.7 MCHC 30.9 L RDW 15.5 H Plt Count 209 MPV 9.8 Immature Gran % (Auto) 1.1 H Neut % (Auto) 72.1 Lymph % (Auto) 15.7 L [place] % (Auto) 10.2 H Eos % (Auto) 0.5 Baso % (Auto) 0.4 Lymph # (Auto) 1.96 [place] # (Auto) 1.3 H Eos # (Auto) 0.1 Baso # (Auto) 0.1 Abs Immat Gran (auto) 0.14 H Absolute Neuts (auto) 9.0 H Absolute Nucleated RBC 0.0 Nucleated RBC % 0.0 RPR Blood Type Antibody Screen Discharge Plan Discharge Attending physician on discharge: Oleksandr Cameron Discharging Clinician: Oleksandr Cameron Anticipated Discharge Date/Time: 07/07/22 08:37 Patient Disposition: Home, Self-Care Activity: may shower and pelvic rest Diet: regular Discharge Instructions: Pelvic rest for 4-6 weeks. May take over the counter Ibuprofen or Tylenol for pain. Take a daily iron supplement once a day, SloFe. Call if saturating more than a pad an hour, leg redness, pain and swelling, temperature>100.4. No strenuous activity. Patient Instructions: Antibiotic Form Stand Alone Forms: General Discharge Information Follow-up/Referrals: Oleksandr Cameron MD [Physician] - Call for Appointment (Follow up in 2-3 weeks) Discharge Medications: New sertraline [Zoloft] 50 mg Tablet 50 mg PO QAM Qty: 30 1RF No Action One-A-Day Women's 1 28 mg iron- 800 mcg-235 mg capsule 1 cap PO DAILY Rx Instructions: may take with food >= 2 hrs before/after zinc/calcium-containing/dairy products and/or antacids ferrous sulfate 325 mg (65 mg iron) Tablet 325 mg PO DAILY Date of admission: 07/06/22 08:02 Primary Care Provider: PHYSICIAN,TELECOMMUNICATIONS SUPPORT Admitting Provider: Oleksandr Cameron Attending physician on admission: Oleksandr Cameron Condition: Stable
[2022-07-07 09:00] VITALS: BP 104/77; PULSE 72; RESP 16; TEMP 36.6; O2SAT 99
[2022-07-07] MEDS: POLYSACCHARIDE IRON COMPLEX 150 MG CAPSULE PO (09:24)
[2022-07-07] MEDS: DOCUSATE SODIUM 100 MG CAPSULE PO (09:24)
[2022-07-07] MEDS: SERTRALINE HCL 50 MG TABLET PO (09:24)
[2022-07-09 10:33] LABS: Rapid Plasma Reagin Non-Reactive (NonReactive)
[2022-07-09 13:20] VITALS: BP 116/64; PULSE 75; RESP 20; TEMP 37.7; O2SAT 100
== END 2022-07-07 15:05 | disposition home or self-care (01) | DRG 560 ==
LOC: ANHLDR 13:40 → ANHOB2 16:06
PROVIDERS: Admitting Provider Obstetrics & Gynecology; Visit Provider Obstetrics & Gynecology
DX: O62.3 Precipitate labor (principal); Z37.0 Single live birth; Z3A.38 38 weeks gestation of pregnancy
CPT/HCPCS: 36415; 85014; 85018; 85025; 86592; 86850; 86900; 86901; A9270; J2590; J3010

== ENCOUNTER 2023-12-16 13:48 | Outpatient (CLI) | payer OTHER, SELFPAY ==
--- NOTE | ~2023-12-16 | US_ITS ---
Pelvic ultrasound. Clinical History: Excessive and frequent menstruation Technique: Realtime transabdominal and transvaginal scanning of the pelvis was performed. Color flow Doppler and Doppler spectral analysis were performed. Findings: The uterus is anteverted. The endometrial stripe has a thickness of 12 mm. No focal mass i s identified. The right ovary measures 3.4 x 2.5 x 2.5 cm. Simple right ovarian cyst measures 2.1 cm. The left ovary measures 4.1 x 2.8 x 2.5 cm. No significant left ovarian or adnexal mass is seen. There is trace free fluid in the cul de sac. Impression: Trace free fluid. 2.1 cm simple right ovarian cyst, likely physiologic. Reviewed, dictated and finalized at location . Impression: Trace free fluid. 2.1 cm simple right ovarian cyst, likely physiologic.
== END 2023-12-16 13:49 | disposition home or self-care (01) ==
LOC: ANHIMG 13:51
PROVIDERS: Visit Provider Obstetrics & Gynecology
DX: N83.291 Other ovarian cyst, right side (principal)
CPT/HCPCS: 76830; 76856

== ENCOUNTER 2024-01-03 00:35 | Day surgery (SDC) | payer OTHER, SELFPAY ==
[2023-12-23 14:30] VITALS: BMI 31.9
--- NOTE | 2023-12-23 14:31 | PC.NURSE ---
Report to the Outpatient Waiting Room, entrance under the green pavilion located off [facility], at time _0630__ on date _01/03/24__. Planned Procedure Time: _0830__.? Time changes happen often and if your time is changed the preop area will call you the afternoon before. - You and your visitor will be asked to self-screen and do not enter if you have any COVID symptoms. Please call surgeon if you need to reschedule. - A mask is optional within the hospital at this time. Patients may have clear liquids (water, carbonated beverages, clear teas, apple juice) until 3 hours prior to surgery with a maximum of 20 ounces. - No food from midnight until time of surgery and no smoking - Infants may have breast milk until 4 hours before surgery, infant formula 6 hours prior to surgery. - Children will be allowed to drink immediately following surgery.? If applicable, please bring a bottle or sippy cup to assist with drinking. Juice, water, soda, and popsicles are readily available.? For infants on formula, please bring formula the day of surgery.? Pacifiers are allowed. Take only the following medications with a SIP of water on the morning of surgery: __none DO NOT STOP ANY OF YOUR OTHER PRESCRIPTION MEDICATIONS PRIOR TO SURGERY EXCEPT THE FOLLOWING Medications to discontinue per physician __vitamins or supplements 3 days prior ____ Date to take last dose Please no make-up, nail ukrainian, hairspray, perfume, deodorant, or body powder the day of surgery.? No jewelry (including any body piercings) or valuables the day of surgery, leave them at home.? Please take a shower or bath the night before, or the morning of, surgery with an antibacterial soap.? Wear comfortable, loose fitting clothing.? Children are encouraged to wear pajamas. - Jewelry must be removed prior to entering the operating room.? Rings and piercings that are not removed may be cut off. - The hospital will not accept responsibility for valuables.? - Please leave all valuables, including medications, at home the day of surgery. If you are going home after surgery, a licensed ross carrier driver must drive you home.? - NO public transportation without another adult if you receive anesthesia. - We recommend that an adult stay with you for 24 hours following discharge. - We also recommend that you do not drive, make important decision, drink alcoholic beverages, or take any drugs that were not prescribed by your health care provider for at least 24 hours after your discharge time. For Pediatric surgeries, we recommend two adults accompany the child home. Follow any additional instructions given to you from your surgeon. Telephone instructions given to _Kae__and asked if any additional questions and then verbalized understanding. Patient advised to call surgeon office or pre surgery nurse liaison [phone] if any additional questions.
[2024-01-03 10:36] VITALS: BMI 33.5
[2024-01-03 10:40] VITALS: BP 124/74; PULSE 92; RESP 14; TEMP 36.2; O2SAT 100
[2024-01-03] MEDS: LACTATED RINGERS 1,000 ML 30 ML IV CONT (11:15)
[2024-01-03] MEDS: ACETAMINOPHEN 500 MG TABLET 1000 MG PO (11:39)
--- NOTE | 2024-01-03 12:07 | WPDANESEPPF ---
Anes - Initial Pre Proc Eval Procedure: Operation Date: 01/03/24 12:30 Proposed Procedures p Hysteroscopy Dilation and Curettage with Dolores Endometrial Ablation - Oleksandr Cameron MD Date/Time: 01/03/24 12:07 Surgeon: Oleksandr Cameron MD Pre Op Diagnosis: menorrhagia Patient Data Age: 28 Gender: F Height: 1.57 m Weight: 83.2 kg Last Vital Signs Temp 36.2 C L 01/03/24 10:40 Pulse 92 01/03/24 10:40 Resp 14 01/03/24 10:40 BP 124/74 01/03/24 10:40 Pulse Ox 100 01/03/24 10:40 O2 Del Method Room Air 01/03/24 10:40 Allergies Allergy/AdvReac Type Severity Reaction Status Date / Time EPIDURAL AdvReac TACHYCARDIA Uncoded 01/03/24 12:03 Home Medications Medication Instructions Recorded Confirmed Type No Home Medications 12/26/23 12/26/23 History Patient hx anesthesia problems: none Family hx anesthesia problems: none Results Review: All pre-operative results and documents have been reviewed as part of the pre-operative evaluation. [facility] Past Medical History Medical History (Updated 01/03/24 @ 12:07 by Umesh Solis MD) Obesity Vaginal delivery x3 Surgical History Surgical History History of tonsillectomy Family History Family History Mother Hypertension Social History Social History Smoking status: Never smoker Alcohol intake: never Substance use: never Substance use type: does not use Lack of Transportation: No Lack of Food: Never True Current Housing: I Have Housing Concerned About Future Housing: No Difficulty Paying Gas/Electric Bills: No Difficulty Paying for Meds: No Currently Unemployed: No Education: High School Diploma/GED Difficulty w/ Childcare or Family Care: No Living arrangements: with family Spiritual care concerns: No Anes - Eval Final PreProcedure Day of Procedure 01/03/24 12:07 Patient weight: obese Heart: regular rate and rhythm Lungs: clear to auscultation Airway: Mallampati scale class II Neurological: alert and oriented Last oral intake: >/= 8 hours ASA classification: II Emergent: no Anesthetic plan: proceed Anesthesia type and monitoring: general GIVS and standard monitoring Results Review: All pre-operative results and documents have been reviewed as part of the pre-operative evaluation. Informed Consent: The patient's anesthetic plan and its attendant risks and benefits were discussed with the patient/family/POA. Questions were solicited and answers provided to the satisfaction of the patient/family/POA.
--- NOTE | 2024-01-03 12:49 | WPDHPUPDATE1 ---
History and Physical Update Update Date/Time: 01/03/24 12:49 History and Physical has been reviewed, including an updated exam of the patient. There are NO changes in the patient's condition. Risks, benefits, and alternatives have been discussed and questions answered. Patient agrees to proceed with procedure.
[2024-01-03] MEDS: ceFAZolin 2 GM/D5W 50 ML 2 GM/50 ML BAG IVPB (12:57)
[2024-01-03] MEDS: LIDOCAINE HCL 1% LOCAL INJ 20 ML VIAL 10 ML INFILTRATE (13:04)
--- NOTE | 2024-01-03 13:19 | W.PM.PROC2 ---
Procedure Note - Detailed Date of Procedure 01/03/24 Pre-op Diagnosis menorrhagia Post-op Diagnosis Same Procedure Performed Dolores endometrial ablation with hysteroscopy and dilation and curettage Surgeon Oleksandr Cameron MD Anesthesia MAC and Local Indications Heavy periods, she declines any hormonal options, she request ablation, endometrial biopsy showed polyp Findings Uterus sound to 7.5cm, cervical length 3.5 cm,uterine length 4cm, normal cavity, good eschar noted after ablation. Description of Procedure After informed consent was obtained patient was taken to the operating room and adequate IV sedation was administered. Attention was turned to the vagina. Speculum was inserted. Single-tooth tenaculum placed on the anterior lip of the cervix.10 cc of 1% lidocaine was injected at the cervical vaginal interface at the 2, 5, 8, and 10, position. The uterus was sounded to 7.5 cm. The cervix was dilated to an 8 Schwartz dilator. The cervical length was 3.5cm . The hysteroscope was inserted into the cavity. The findings were a normal uterine cavity. The hysteroscope was removed. The Dolores ablation instrument was inserted into the cavity. Cavity assessment was performed and confirmed intact. The ablation was enabled. After 120 seconds the Dolores stopped. The ablation instrument was removed. The hysteroscope was inserted and there was noted to be good eschar with the cavity. The hysteroscope was removed the single-tooth tenaculum was removed hemostasis was noted at the tenaculum site. Sponge count correct. The patient taken to recovery in stable condition. Estimated Blood Loss 5 Drains No Packing No Pathology None sent Complications No immediate complications Condition Stable Disposition Same day [facility] Billing Surgery - Charge Forward: Surgery Billing
[2024-01-03 13:22] VITALS: BP 97/62; PULSE 79; RESP 12; RESP 16; O2SAT 96
[2024-01-03 13:45] VITALS: BP 100/68; PULSE 75; RESP 16
[2024-01-03 13:52] LABS: BEDSIDEPREGUCG Negative (Negative)
[2024-01-03 14:15] VITALS: BP 109/74; PULSE 77; RESP 16
== END 2024-01-03 14:25 | disposition home or self-care (01) ==
PROVIDERS: Visit Provider Obstetrics & Gynecology
PROC: 0U5B8ZZ Destruction of Endometrium, Via Natural or Artificial Opening Endoscopic (ICD-10-PCS; CPT 58563; principal; 2024-01-03 12:30)
DX: N92.0 Excessive and frequent menstruation with regular cycle (principal); E66.9 Obesity, unspecified; Z68.33 Body mass index [BMI] 33.0-33.9, adult
CPT/HCPCS: 58563; A9270; J0690; J2003; J2250; J2704; J3010; J7120